=== PATIENT | male | born 1990 | race Caucasian/White ===

== ENCOUNTER 2021-06-21 15:23 | Outpatient (CLI) | payer OTHER ==
[~2021-06-21] VITALS: Ht 177.8 cm; Wt 143.6 kg
[2021-06-21 15:30] VITALS: BP 126/77
[2021-06-21] MEDS ORDERED: VEDOLIZUMAB 300 MG in NS 250 ML IV ONE (15:30)
[2021-06-21 16:53] VITALS: BP 120/72
[2021-06-21 16:55] VITALS: BP 120/72
== END 2021-06-21 16:55 | disposition home or self-care (01) ==
LOC: M INFU 15:23
PROVIDERS: ATTEND Internal Medicine Gastroenterology
DX: K50.90 Crohn's disease, unspecified, without complications (principal)
CPT/HCPCS: 96365; J3380

== ENCOUNTER 2021-08-12 15:03 | Outpatient (CLI) | payer OTHER ==
[~2021-08-12] VITALS: Ht 177.8 cm; Wt 150.5 kg
[~2021-08-12 15:03] MED LIST: ACETAMINOPHEN TAB 650MG DOSE (2X325MG) PO ONE; VEDOLIZUMAB 300 MG in NS 250 ML IV ONE; diphenhydrAMINE 25MG CAP PO ONE
[2021-08-12 15:30] VITALS: BP 144/90
[2021-08-12 16:16] VITALS: BP 134/85
== END 2021-08-12 16:17 | disposition home or self-care (01) ==
LOC: M INFU 15:03
PROVIDERS: ATTEND Internal Medicine Gastroenterology
DX: K50.90 Crohn's disease, unspecified, without complications (principal)
CPT/HCPCS: 96365; J3380

== ENCOUNTER 2021-10-06 16:40 | Outpatient (CLI) | payer OTHER ==
[~2021-10-06] VITALS: Ht 177.8 cm; Wt 140.9 kg
[~2021-10-06 16:40] MED LIST changes: -ACETAMINOPHEN TAB 650MG DOSE (2X325MG) PO ONE; -diphenhydrAMINE 25MG CAP PO ONE
[2021-10-06 16:45] VITALS: BP 144/68
[2021-10-06 17:35] VITALS: BP 132/73
== END 2021-10-06 17:35 | disposition home or self-care (01) ==
LOC: M INFU 16:40 → EDUNIT# 10-07 15:00
PROVIDERS: ATTEND Internal Medicine Gastroenterology
DX: K50.90 Crohn's disease, unspecified, without complications (principal)
CPT/HCPCS: 96365; J3380

== ENCOUNTER 2021-12-30 14:00 | Outpatient (CLI) | payer OTHER ==
[~2021-12-30] VITALS: Ht 177.8 cm; Wt 122.7 kg
[2021-12-30 15:10] VITALS: BP 123/72
== END 2021-12-30 15:10 | disposition home or self-care (01) ==
LOC: M INFU 14:00
PROVIDERS: ATTEND Internal Medicine Gastroenterology
DX: K50.919 Crohn's disease, unspecified, with unspecified complications (principal)
CPT/HCPCS: 96365; J3380

== ENCOUNTER 2022-02-24 14:00 | Outpatient (CLI) | payer OTHER ==
[~2022-02-24] VITALS: Ht 177.8 cm; Wt 141.0 kg
[2022-02-24 14:00] VITALS: BP 127/68
[2022-02-24 15:24] VITALS: BP 119/66
== END 2022-02-24 15:04 | disposition home or self-care (01) ==
LOC: M INFU 14:00
PROVIDERS: ATTEND Internal Medicine Gastroenterology
DX: K50.90 Crohn's disease, unspecified, without complications (principal)
CPT/HCPCS: 96365; J3380

== ENCOUNTER 2022-04-21 14:45 | Outpatient (CLI) | payer OTHER ==
[~2022-04-21] VITALS: Ht 177.8 cm; Wt 141.0 kg
[2022-04-21 14:58] VITALS: BP 124/72
[2022-04-21] MEDS ORDERED: VEDOLIZUMAB 300 MG in NS 250 ML IV ONE (15:00)
[2022-04-21 15:47] VITALS: BP 125/62
[2022-04-26] MEDS ORDERED: MICR1TAB5 PO (10:21)
[2022-04-26] MEDS ORDERED: TRAZ-252 PO (10:21)
[2022-04-26] MEDS ORDERED: VENL75CA47 PO (10:21)
[2022-04-26] MEDS ORDERED: LOPE1CAP5 PO (10:23)
[2022-04-26] MEDS ORDERED: ENTY1INJ IV (10:23)
[2022-04-26] MEDS ORDERED: ALIG4CAP PO (10:25)
[2022-04-26] MEDS ORDERED: HYDR-3363 PO (10:25)
[2022-04-26] MEDS ORDERED: VITMTA PO (10:25)
== END 2022-04-21 15:45 | disposition home or self-care (01) ==
LOC: M INFU 14:45
PROVIDERS: ATTEND Internal Medicine Gastroenterology
DX: K50.90 Crohn's disease, unspecified, without complications (principal)
CPT/HCPCS: 96365; J3380

== ENCOUNTER 2022-05-10 07:40 | Day surgery (SDC) | payer OTHER ==
[~2022-05-10] VITALS: Ht 177.8 cm; Wt 123.8 kg
[~2022-05-10 07:40] MED LIST changes: +ALIG4CAP PO; +ENTY1INJ IV; +HYDR-3363 PO; +LIDOCAINE 2% 100MG/5ML SDV (FOR ANES.) As Ordered ONE; +LOPE1CAP5 PO; +MICR1TAB5 PO; +MIDAZOLAM INJ 2MG/2ML VIAL (J2250 PER 1MG) As Ordered ONE; +NS 1,000 ML IV ONE; +TRAZ-252 PO; -VEDOLIZUMAB 300 MG in NS 250 ML IV ONE; +VENL75CA47 PO; +VITMTA PO; +propofoL 200 MG/20 ML VIAL As Ordered ONE
[2022-05-10] MEDS ORDERED: propofoL 200 MG/20 ML VIAL As Ordered ONE (09:27)
[2022-05-10 10:01] VITALS: BP 117/64
== END 2022-05-10 10:08 | disposition home or self-care (01) ==
LOC: M OPP 07:40
PROVIDERS: ATTEND Internal Medicine Gastroenterology
DX: Z87.19 Personal history of other diseases of the digestive system (principal); Z09 Encounter for follow-up examination after completed treatment for conditions other than malignant neoplasm; K50.90 Crohn's disease, unspecified, without complications; F32.9 Major depressive disorder, single episode, unspecified; F51.9 Sleep disorder not due to a substance or known physiological condition, unspecified; Z83.79 Family history of other diseases of the digestive system; Z90.49 Acquired absence of other specified parts of digestive tract; Z79.620 Long term (current) use of immunosuppressive biologic; Z79.899 Other long term (current) drug therapy; Z80.3 Family history of malignant neoplasm of breast
CPT/HCPCS: 45331; 88305; J2250

== ENCOUNTER 2022-06-16 14:50 | Outpatient (CLI) | payer OTHER ==
[~2022-06-16] VITALS: Ht 177.8 cm; Wt 124.7 kg
[~2022-06-16 14:50] MED LIST changes: -LIDOCAINE 2% 100MG/5ML SDV (FOR ANES.) As Ordered ONE; -MIDAZOLAM INJ 2MG/2ML VIAL (J2250 PER 1MG) As Ordered ONE; -NS 1,000 ML IV ONE; -propofoL 200 MG/20 ML VIAL As Ordered ONE
[2022-06-16 14:54] VITALS: BP 136/83
[2022-06-16] MEDS ORDERED: VEDOLIZUMAB 300 MG in NS 250 ML IV ONE (15:00)
[2022-06-16 15:12] VITALS: BP 130/87
[2022-06-16 15:55] VITALS: BP 141/80
== END 2022-06-16 15:55 | disposition home or self-care (01) ==
LOC: M INFU 14:50
PROVIDERS: ATTEND Internal Medicine Gastroenterology
DX: K50.90 Crohn's disease, unspecified, without complications (principal)
CPT/HCPCS: 96365; J3380

== ENCOUNTER 2022-08-11 14:30 | Outpatient (CLI) | payer OTHER ==
[~2022-08-11] VITALS: Ht 177.8 cm; Wt 124.7 kg
[2022-08-11 14:47] VITALS: BP 110/63
[2022-08-11] MEDS ORDERED: VEDOLIZUMAB 300 MG in NS 250 ML IV ONE (15:00)
[2022-08-11 15:59] VITALS: BP 104/58
== END 2022-08-11 15:50 | disposition home or self-care (01) ==
LOC: M INFU 14:30
PROVIDERS: ATTEND Internal Medicine Gastroenterology
DX: K50.90 Crohn's disease, unspecified, without complications (principal)
CPT/HCPCS: 96365; J3380

== ENCOUNTER 2022-12-01 15:00 | Outpatient (CLI) | payer OTHER ==
[~2022-12-01] VITALS: Ht 177.8 cm; Wt 124.7 kg
[~2022-12-01 15:00] MED LIST changes: +VEDOLIZUMAB 300 MG in NS 250 ML IV ONE
[2022-12-01 15:05] VITALS: BP 117/70; TEMP 97.7; O2SAT 98
[2022-12-01 15:50] VITALS: BP 121/70; O2SAT 100
== END 2022-12-01 15:50 | disposition home or self-care (01) ==
LOC: M INFU 15:00
PROVIDERS: ATTEND Internal Medicine Gastroenterology
DX: K50.90 Crohn's disease, unspecified, without complications (principal)
CPT/HCPCS: 96365; J3380

== ENCOUNTER 2023-01-26 14:50 | Outpatient (CLI) | payer OTHER ==
[~2023-01-26] VITALS: Ht 177.8 cm; Wt 112.0 kg
[2023-01-26 14:50] VITALS: BP 111/57; O2SAT 97
[~2023-01-26 14:50] MED LIST changes: -VEDOLIZUMAB 300 MG in NS 250 ML IV ONE
[2023-01-26] MEDS ORDERED: VEDOLIZUMAB 300 MG in NS 250 ML IV ONE (15:00)
[2023-01-26 16:05] VITALS: BP 101/58; O2SAT 98
== END 2023-01-26 16:05 | disposition home or self-care (01) ==
LOC: M INFU 14:50
PROVIDERS: ATTEND Internal Medicine Gastroenterology
DX: K50.90 Crohn's disease, unspecified, without complications (principal)
CPT/HCPCS: 96365; J3380

== ENCOUNTER 2023-03-23 14:45 | Outpatient (CLI) | payer OTHER ==
[~2023-03-23] VITALS: Ht 177.8 cm; Wt 111.5 kg
[2023-03-23 14:52] VITALS: BP 125/76; TEMP 97.3; O2SAT 97
[2023-03-23] MEDS ORDERED: VEDOLIZUMAB 300 MG in NS 250 ML IV ONE (15:00)
[2023-03-23 15:45] VITALS: BP 127/69; TEMP 97.4; O2SAT 96
== END 2023-03-23 15:52 | disposition home or self-care (01) ==
LOC: M INFU 14:45
PROVIDERS: ATTEND Internal Medicine Gastroenterology
DX: K50.90 Crohn's disease, unspecified, without complications (principal)
CPT/HCPCS: 96365; J3380

== ENCOUNTER 2023-05-18 14:54 | Outpatient (CLI) | payer OTHER ==
[~2023-05-18] VITALS: Ht 177.8 cm; Wt 115.9 kg
[2023-05-18 14:54] VITALS: BP 117/65; O2SAT 99
[2023-05-18] MEDS ORDERED: VEDOLIZUMAB 300 MG in NS 250 ML IV ONE (15:00)
[2023-05-18 16:08] VITALS: BP 126/59; O2SAT 100
== END 2023-05-18 16:10 | disposition home or self-care (01) ==
LOC: M INFU 14:54
PROVIDERS: ATTEND Internal Medicine Gastroenterology
DX: K50.90 Crohn's disease, unspecified, without complications (principal)
CPT/HCPCS: 96365; J3380

== ENCOUNTER 2023-08-31 14:04 | Outpatient (CLI) | payer OTHER ==
[~2023-08-31] VITALS: Ht 177.8 cm; Wt 115.9 kg
[2023-08-31 14:35] VITALS: BP 114/53; O2SAT 98
[2023-08-31] MEDS: USTEKINUMAB 520 MG in NS 146 ML IV ONE (15:01)
[2023-08-31 15:04] VITALS: BP 114/53; TEMP 98.2; O2SAT 98
[2023-08-31 15:53] VITALS: BP 122/65; O2SAT 98
[2023-08-31 16:58] VITALS: BP 118/61; O2SAT 98
[2023-08-31 17:25] VITALS: BP 128/65; O2SAT 99
== END 2023-08-31 17:20 ==
LOC: M INFU 14:04
PROVIDERS: ATTEND Internal Medicine Gastroenterology
DX: K50.919 Crohn's disease, unspecified, with unspecified complications (principal)
CPT/HCPCS: 96365; 96366; J3358